=== PATIENT | male | born 1965 | race African-American/Black ===

== ENCOUNTER 2020-06-10 17:40 | Emergency (ER) | payer MEDICARE, MEDICAID ==
[~2020-06-10] VITALS: Ht 180.3 cm; Wt 106.0 kg
[2020-06-10 17:45] VITALS: BP 153/67
[2020-06-10] MEDS ORDERED: HYDROCODONE/ACETAMINOPHEN 5/325MG TABLET PO ONE (20:15)
== END 2020-06-10 20:25 | disposition home or self-care (01) ==
LOC: ER 18:15
DX: S93.401A Sprain of unspecified ligament of right ankle, initial encounter (principal); I49.9 Cardiac arrhythmia, unspecified; X58.XXXA Exposure to other specified factors, initial encounter; Y93.9 Activity, unspecified; Y92.9 Unspecified place or not applicable
CPT/HCPCS: 73610; 73630; 93005; 99283; 99284

== ENCOUNTER 2022-12-12 00:55 | Emergency (ER) | payer BC, MEDICAID ==
[~2022-12-12] VITALS: Ht 180.3 cm; Wt 111.3 kg
[2022-12-12 01:40] VITALS: BP 120/65; PULSE 66; RESP 16; TEMP 98.6; O2SAT 97
[2022-12-13] MEDS ORDERED: NAPR-1129 MT (16:12)
== END 2022-12-12 04:49 | disposition left against medical advice (07) ==
LOC: ER 00:55
DX: Z53.21 Procedure and treatment not carried out due to patient leaving prior to being seen by health care provider (principal)
CPT/HCPCS: 99281

== ENCOUNTER 2022-12-13 13:23 | Emergency (ER) | payer BC, MEDICAID ==
[~2022-12-13] VITALS: Ht 180.3 cm; Wt 107.0 kg
[2022-12-13 13:31] VITALS: PULSE 75; O2SAT 96
[2022-12-13] MEDS ORDERED: ACETAMINOPHEN 325MG TABLET PO ONE (14:15)
[2022-12-13] MEDS ORDERED: LIDOCAINE 5% PATCH TOP SCH (14:15)
[2022-12-13 15:43] VITALS: BP 122/63; RESP 18; TEMP 98.5
[2022-12-13] MEDS ORDERED: NAPR-1129 MT (16:12)
== END 2022-12-13 18:49 | disposition home or self-care (01) ==
LOC: ER 13:23
DX: S09.90XA Unspecified injury of head, initial encounter (principal); M54.50 Low back pain, unspecified; V99.XXXA Unspecified transport accident, initial encounter; Y93.89 Activity, other specified; Y92.89 Other specified places as the place of occurrence of the external cause; Y99.8 Other external cause status
CPT/HCPCS: 99284

== ENCOUNTER 2024-05-15 15:50 | Emergency (ER) | payer MEDICARE, MEDICAID ==
[~2024-05-15] VITALS: Ht 182.9 cm; Wt 100.0 kg
[~2024-05-15 15:50] MED LIST: NAPR-1129 MT
[2024-05-15 15:58] VITALS: BP 132/88; PULSE 76; RESP 18; TEMP 37.2; O2SAT 100; O2SAT 98
== END 2024-05-15 16:56 | disposition left against medical advice (07) ==
LOC: ER 15:50
DX: R07.89 Other chest pain (principal); R41.82 Altered mental status, unspecified; R42 Dizziness and giddiness
CPT/HCPCS: 71045; 82962; 93005; 99284

== ENCOUNTER 2024-08-01 11:31 | Emergency (ER) | payer BC, MEDICAID ==
[~2024-08-01] VITALS: Ht 180.3 cm; Wt 78.0 kg
[2024-08-01 11:36] VITALS: O2SAT 97
[2024-08-01] MEDS: ACETAMINOPHEN 325MG TABLET PO STA (14:12)
[2024-08-01 14:32] LABS: BASOPHILS % 0.7 % (0.0-2.0); EOSINOPHILS % 0.8 % (0.0-5.0); HEMATOCRIT. 43.9 % (42.0-52.0); HEMOGLOBIN. 14.6 g/dL (14.0-18.0); LYMPHOCYTES % 25.9 % (20.0-50.0); MEAN CORPUSCULAR HEMOGLOBIN 31.2 pg (28.0-32.0); MEAN CORPUSCULAR HGB CONC 33.2 g/dL (31.0-37.0); MEAN PLATELET VOLUME 6.7 fl (7.4-10.4); MONOCYTES % 6.6 % (2.0-8.0); PLATELET 264 x1000/uL (130-400); RED BLOOD CELL COUNT 4.67 mill/uL (4.7-6.1); RED CELL DISTRIBUTION WIDTH 14.9 % (11.6-14.6); WHITE BLOOD COUNT 8.3 x1000/uL (4.5-11.0)
[2024-08-01 14:40] LABS: CHLORIDE 106 mEq/L (98-107); POTASSIUM 4.3 mEq/L (3.5-5.1); SODIUM 140 mEq/L (136-145)
[2024-08-01 14:41] LABS: CALCIUM 9.6 mg/dL (8.7-10.4); CARBON DIOXIDE 31 mEq/L (21-32)
[2024-08-01 14:46] LABS: GLUCOSE 107 mg/dL (70-105); UREA NITROGEN BLOOD 10 mg/dL (9-23)
[2024-08-01 14:48] LABS: ALANINE AMINOTRANSFERASE 11 IU/L (10-49); ALBUMIN 4.4 g/dL (3.2-4.8); ASPARTATE AMINOTRANSFERASE 13 IU/L (<34); BILIRUBIN DIRECT 0.6 mg/dL (<=3.0); BILIRUBIN TOTAL 2.6 mg/dL (0.1-1.0)
[2024-08-01 14:49] LABS: PROTEIN TOTAL 7.7 g/dL (6.0-8.3)
[2024-08-01 14:50] LABS: TROPONIN I HIGH SENSITIVITY < 4 ng/L (3.0-53)
[2024-08-01 14:57] LABS: PROTHROMBIN TIME 11.2 sec (9.6-11.0)
[2024-08-01] MEDS: LIDOCAINE 5% PATCH TOP SCH (16:10)
[2024-08-01 16:22] VITALS: BP 132/70; PULSE 68; RESP 18; TEMP 36.9; O2SAT 98
== END 2024-08-01 16:34 | disposition home or self-care (01) ==
LOC: ER 11:31
DX: R07.89 Other chest pain (principal)
CPT/HCPCS: 36415; 71045; 71250; 74176; 80048; 80076; 84484; 85025; 93005; 99285

== ENCOUNTER 2024-08-22 10:43 | Emergency (ER) | payer BC, MEDICAID ==
[~2024-08-22] VITALS: Ht 180.3 cm; Wt 82.0 kg
[2024-08-22 11:00] VITALS: TEMP 36.7; O2SAT 100
[2024-08-22 12:30] VITALS: O2SAT 99
[2024-08-22 12:35] VITALS: BP 109/55; PULSE 81; RESP 16
[2024-08-22] MEDS: KETOROLAC 15MG/ML VIAL IM ONE (12:35)
[2024-08-22] MEDS: DEXAMETHASONE 10 MG/ML VIAL PO ONE (12:35)
[2024-08-22] MEDS: ACETAMINOPHEN 325MG TABLET PO ONE (12:36)
[2024-08-22] MEDS: LIDOCAINE 5% PATCH TOP STA (12:39)
[2024-08-22] MEDS ORDERED: LIDO-53 TP (12:47)
[2024-08-22] MEDS ORDERED: IBUP-2029 MT (12:47)
[2024-08-22] MEDS ORDERED: CYCL10TA21 MT (12:47)
== END 2024-08-22 12:54 | disposition home or self-care (01) ==
LOC: ER 10:43
DX: M54.41 Lumbago with sciatica, right side (principal); Z79.899 Other long term (current) drug therapy; V43.52XA Car driver injured in collision with other type car in traffic accident, initial encounter; Y93.89 Activity, other specified; Y92.410 Unspecified street and highway as the place of occurrence of the external cause; Y99.8 Other external cause status
CPT/HCPCS: 99284; 72100; 96372; J1885; J1100

== ENCOUNTER 2024-12-28 02:39 | Emergency (ER) | payer OTHER, BC, MEDICAID ==
[~2024-12-28] VITALS: Ht 175.3 cm; Wt 79.0 kg
[~2024-12-28 02:39] MED LIST changes: +CYCL10TA21 MT; +IBUP-1455 MT; +LIDO-53 TP
[2024-12-28 02:54] VITALS: O2SAT 100
[2024-12-28] MEDS: LIDOCAINE 5% PATCH TOP SCH (04:14)
[2024-12-28] MEDS: KETOROLAC 15MG/ML VIAL IM ONE (04:15)
[2024-12-28] MEDS ORDERED: NAPR-1176 MT (04:27)
[2024-12-28] MEDS ORDERED: LIDO-53 TP (04:27)
[2024-12-28] MEDS ORDERED: CYCL5TAB3 MT (04:27)
[2024-12-28 04:35] VITALS: BP 110/56; PULSE 60; RESP 18; TEMP 36.8; O2SAT 100
== END 2024-12-28 04:38 | disposition home or self-care (01) ==
LOC: ER 02:39
DX: M54.2 Cervicalgia (principal); Z79.1 Long term (current) use of non-steroidal anti-inflammatories (NSAID); V49.9XXA Car occupant (driver) (passenger) injured in unspecified traffic accident, initial encounter; Y93.89 Activity, other specified; Y92.410 Unspecified street and highway as the place of occurrence of the external cause; Y99.8 Other external cause status
CPT/HCPCS: 99283; 96372; J1885